=== PATIENT | female | born 1975 | race Two or more races ===

== ENCOUNTER 2022-06-23 19:53 | Emergency (ER) | payer OTHER, SELFPAY ==
--- NOTE | ~2022-06-23 | CT_ITS ---
EXAMINATION: CT ABDOMEN AND PELVIS WITHOUT CONTRAST CLINICAL INFORMATION: R flank pain etiology? . COMPARISON: No pertinent prior studies are available for comparison. TECHNIQUE: Multidetector volumetric imaging was performed from the superior aspect of the liver through the pubic symphysis without contrast per renal stone protocol. Sagittal and coronal reformatted images were obtained on the technologist workstation. This CT examination was performed using dose optimization techniques as appropriate, variously including the following: *Automated exposure control *Adjustment of mA and/or kV according to patient size (this includes techniques or standardized protocols for targeted exams where dose is matched to indication/reason for exam; i.e. extremities or head) *Use of iterative reconstruction technique DLP: 520 mGy-cm. FINDINGS: LUNG BASES: The visualized lung bases are unremarkable. Bilateral breast prostheses partially visualized LIVER, GALLBLADDER, BILIARY TREE: The non-contrast liver is normal in size, shape, and attenuation. No focal hepatic lesion or biliary ductal dilatation is present. The gallbladder surgically absent PANCREAS: Unremarkable. SPLEEN: Unremarkable. ADRENAL GLANDS: Unremarkable. KIDNEYS AND URETERS: The kidneys are normal in size, shape, and attenuation. No hydronephrosis, hydroureter, or calculi seen. No perinephric stranding. BLADDER: Unremarkable. GASTROINTESTINAL TRACT: Colon is very tortuous. The cecum is in the pelvis with a redundant portion of ascending colon that extends into the left upper quadrant with the hepatic flexure in the normal right upper quadrant and the splenic flexure in the left upper quadrant as well. No obstructive changes to the bowel ABDOMINAL WALL: No significant hernia is appreciated. There likely has been prior abdominoplasty. LYMPHOVASCULAR STRUCTURES: No lymphadenopathy. The aorta is unremarkable.. PELVIC VISCERA: Retroverted uterus with physiologic changes within normal limits for age OSSEUS STRUCTURES: Unremarkable. CT/CT abdomen pelvis wo IV con IMPRESSION: I do not appreciate any acute intra-abdominal process. Specifically no renal or ureteric calculi. No obstructive changes to the bowel. The colon is very tortuous but the cecum is in the pelvis and the ascending colon extends into the left upper quadrant with the hepatic flexure in the normal right upper quadrant and transverse colon crossing midline to the splenic flexure in the left upper quadrant as well.
[2022-06-23 20:28] VITALS: BP 132/91; PULSE 80; RESP 15; TEMP 36.6; O2SAT 100; BMI 28.4
--- OUTSIDE RECORDS SUMMARY | 2022-06-23 21:11 | XMS_ITS | Continuity of Care Document ---
:1975 Author Organization [facility] Address [address] [place] [id number]- Care Team Providers Name Role Phone Anshul ANGELO MD, Geoffrey Buckley Primary Care Physician Encounter [facility] Date(s): 12/29/19 - 12/29/[address] [address]- [facility] Discharge Disposition: A-D/C Walkout Attending Physician: Not on Staff, Attending MD Admitting Physician: Not on Staff, Admitting MD Referring Physician: Not on Staff, Referring MD Allergies, Adverse Reactions, Alerts Substance Reaction Severity Status penicillin itchy Active Results Radiology Reports Exam Date Time Procedure Performing Provider Status 12/29/19 3:40 PM Ankle Min 3 Views Left Guscott , Polina; Auth (V erified) Notes:(Ankle Min 3 Views Left) Reason For Exam: with Pain;TraumaRESULT: Ankle Min 3 Views Left Ankle Min 3 Views Left Refer to EMR; Reason: Trauma; with Pain; Clinical Question(s): Fracture; Special Instructions: This is a protocol film and radiologist should call any findings to the Charge Nurse; Hx of Present Illness: : syncope ankle injury; Other Objective Findings: t Pt was outside hanging something up , had syncopal episode. pt reports ileft ankel pain. pt reports startd new weight loss aid med no covid. COMPARISON: None. FINDINGS: No evidence of acute or healing fracture or bone lesion. Intact ankle mortise and talar dome. No arthritic changes. Normal soft tissues. IMPRESSION: Normal. WSN: [id number] Ordering Physician: Alyssa Du Dictated By: Jyothi Koenig MD Dictated Date/Time: 12/29/19 3:41 pm Reviewed By: Jyothi Koenig MD Signed By: Jyothi Koengi MD Signed Date/Time: 12/29/19 3:41 pm Transcribed By: KAYCE Transcribed Date/Time: 12/29/19 3:41 pm Vital Signs Most recent to oldest [Reference Range]: 1 Height 165 cm (12/29/19 3:48 PM) Oxygen Saturation [94-100 %] 100 % (12/29/19 3:48 PM) Pulse Rate [55-90 bpm] 78 bpm (12/29/19 3:48 PM) Blood Pressure [90-138/55-84 mm Hg] 111/75 mm Hg (12/29/19 3:48 PM) Respiratory Rate [16-30 br/min] 16 br/min (12/29/19 3:48 PM) Temperature [96.8-100.4 DegF] 98.0 DegF (12/29/19 3:48 PM) Mode of Delivery (Oxygen) Room air (12/29/19 3:48 PM) Blood pressure sites Arm, left (12/29/19 3:48 PM) Temperature Route Oral (12/29/19 3:48 PM) Weight Obtained Via UTO (12/29/19 3:48 PM) Dry Weight Obtained Via UTO (12/29/19 3:48 PM) Social History Social History Type Response Smoking Status Never smoker entered on: 06/30/16 Sex
--- OUTSIDE RECORDS SUMMARY | 2022-06-23 21:11 | XMS_ITS | Continuity of Care Document ---
:1975 Author Organization [facility] Address [address] [place] [id number]- Care Team Providers Name Role Phone Geoffrey Landers III, MD Primary Care Physician Encounter [facility] Date(s): 09/06/21 - 09/06/[address] [address]- Discharge Disposition: A-D/C Walkout Attending Physician: Not on Staff, Attending MD Admitting Physician: Not on Staff, Admitting MD Referring Physician: Not on Staff, Referring MD Allergies, Adverse Reactions, Alerts Substance Reaction Severity Status penicillin itchy Active Vital Signs Most recent to oldest 1 2 3 [Reference Range]: Oxygen Saturation [94-100 %] 100 % 94 % 97 % (09/06/21 4:00 PM) (09/06/21 1:11 PM) (09/06/21 1:0 4 PM) Pulse Rate [55-90 bpm] 107 bpm 99 bpm 104 bpm *H* *H* *H* (09/06/21 4:00 PM) (09/06/21 1:11 PM) (09/06/21 1:0 4 PM) Blood Pressure [90-138/55-84 mm 100/69 mm Hg 145/89 mm Hg Hg] (09/06/21 4:00 PM) *H* (09/06/21 1:11 PM) Respiratory Rate [16-30 br/min] 18 br/min 18 br/min (09/06/21 4:00 PM) (09/06/21 1:11 PM) Temperature [96.8-100.4 DegF] 99.0 DegF 101.3 DegF (09/06/21 4:00 PM) *H* (09/06/21 1:11 PM) Mode of Delivery (Oxygen) Room air Room air Room a ir (09/06/21 4:00 PM) (09/06/21 1:11 PM) (09/06/21 1:0 4 PM) Blood pressure sites Arm, right Arm, left (09/06/21 4:00 PM) (09/06/21 1:11 PM) Temperature Route Oral Oral (09/06/21 4:00 PM) (09/06/21 1:11 PM) Social History Social History Type Response Smoking Status Never smoker entered on: 06/30/16 Sex
[2022-06-23 21:19] VITALS: BP 121/79; PULSE 77; RESP 16; TEMP 36.5; O2SAT 100
--- NOTE | 2022-06-23 21:21 | PC.NURSE ---
Pt aox4. Breaths are even and unlabored. Abd soft and tender. Reports feeing nauseas. Denies vomiting and diarrhea. Skin warm pink and dry. Reports numbness and tingling on all extremities. +pedal and radial pulses present. Reports lower back pain, 10/10. Will continue to monitor.
--- NOTE | 2022-06-23 22:12 | ED.BACK ---
HPI - Back Pain/Injury General Chief Complaint: Back Pain/Injury Stated Complaint: lower back pain Time Seen by Provider: 06/23/22 22:12 Source: patient Mode of arrival: ambulatory Limitations: no limitations History of Present Illness HPI Narrative: Patient with no significant past medical history noted subacute onset of low back pain for last few days got worse in last 2 days denies any injury pain is mostly in lumbar area and flank area also complaining pain in abdomen diffuse as she aided with nausea and vomiting no dysuria no fever or chills no history of kidney stone no hematuria pain is mostly localized in the back area versus also now in abdominal Related Data Previous Rx's Medication Instructions Recorded cyclobenzaprine 10 mg tablet 10 mg PO Q8H #20 tabs 06/23/22 oxycodone-acetaminophen 5 mg-325 1 tab PO Q6H PRN pain #20 tabs 06/23/22 mg tablet (Percocet) Allergies Allergy/AdvReac Type Severity Reaction Status Date / Time Penicillins Allergy Mild ITCHING Unverified 02/13/20 15:47 ibuprofen [From Motrin] Allergy Unknown ITCHY Unverified 02/13/20 15:47 penicillin V Allergy Unknown hives and Verified 10/05/12 00:00 itching Review of Systems Review of Systems: Yes all other systems are reviewed and are negative PMFSH Social History Social History Advance Directives: No Physical Exam Vital Signs: Vital Signs: Last Vital Signs Temp 98.2 F 06/23/22 23:14 Pulse 63 06/23/22 23:14 Resp 16 06/23/22 23:14 BP 129/77 06/23/22 23:14 Pulse Ox 100 06/23/22 23:14 O2 Del Method 06/23/22 23:14 BMI result Body Mass Index 28.4 Appearance: Alert. Oriented X3. No acute distress. Eyes: PERRLA, No Nystagmus ENT: Pharynx normal. Oral Mucosa moist Neck: Normal inspection. Neck supple. CVS: Normal heart rate and rhythm. Pulses normal. Respiratory: No respiratory distress. Equal air entry bilateral, no wheezing/rales/rhonchi Abdomen: Soft , diffuse abdominal tenderness no rebound tenderness or guarding Bowel sounds are present, no mass palpable, right CVA tenderness Skin: Skin warm and dry. Normal skin color. Normal skin turgor. back: Right flank upper lumbar tenderness no rash Extremities: No lower extremity edema. No calf tenderness Neuro: Oriented X 3. No motor deficit. No sensory deficit.No cerebellar signs , cranial nerves II-XII intact Medications Administered Discontinued Medications Generic Name Dose Route Start Last Admin Trade Name Martinq PRN Reason Stop Dose Admin Sodium Chloride 1,000 mls @ 999 mls/hr 06/23/22 22:20 06/23/22 22:44 Ns IV 06/23/22 23:20 999 mls/hr .Q1H1M ONE Administration Morphine Sulfate 4 mg 06/23/22 22:20 06/23/22 22:45 Morphine Sulfate 4 Mg/Ml Cartridge IVPUSH 06/23/22 22:21 4 mg ONCE ONE Administration Protocol Ondansetron HCl 4 mg 06/23/22 22:20 06/23/22 22:45 Ondansetron Hcl 4 Mg/2 Ml Vial IVPUSH 06/23/22 22:21 4 mg ONCE ONE Administration Medical Decision Making Medical Decision Making [facility] Narrative: Patient with atraumatic low back pain CT scan negative for any acute abdominal and spinal pathology no signs of spinal cord impingement. Discharge patient home on pain medication muscle relaxant Lab Data [facility] Lab Attestation statement: I reviewed the patient's lab results. 06/23/22 22:27 06/23/22 22:27 Labs: Lab Results 06/23/22 06/23/22 06/23/22 Range/Units 22:27 22:27 22:27 WBC 7.5 (4.8-10.8) X10*3/uL RBC 4.13 L (4.20-5.50) X10*6/uL Hgb 12.3 (12.0-16.0) g/dl Hct 37.1 (37.0-47.0) % MCV 89.8 (80.0-98.0) fL MCH 29.8 (27.0-33.0) pg MCHC 33.2 (31.0-35.0) g/dl RDW 12.7 (11.0-16.0) % Plt Count 320 (160-400) X10*3/uL MPV 10.2 (9.4-12.3) fL Immature Gran % (Auto) 0.3 (0.0-0.4) % Neut % (Auto) 67.4 (45-73) % Lymph % (Auto) 22.3 (20-40) % [place] % (Auto) 5.2 (2-11) % Eos % (Auto) 4.4 H (0-4) % Baso % (Auto) 0.4 (0-2) % Lymph # (Auto) 1.7 (1.2-4.9) X10*3/uL [place] # (Auto) 0.4 (0.1-1.2) X10*3/uL Eos # (Auto) 0.3 (0.0-0.4) X10*3/uL Baso # (Auto) 0.0 (0.0-0.2) X10*3/uL Abs Immat Gran (auto) 0.02 (0.00-0.03) X10*3/uL Absolute Neuts (auto) 5.0 (2.0-8.3) x10*3/uL Absolute Nucleated RBC 0.000 (0.0-0.012) X10*3/uL Nucleated RBC % (auto) 0.0 (0.0-0.2) /100WBC Sodium 141 (135-145) mmol/L Potassium 3.8 (3.3-5.1) mmol/L Chloride 105 (96-108) mmol/L Carbon Dioxide 28 (22-29) mmol/L Anion Gap 12 (12-20) BUN 17 H (9-16) mg/dL Creatinine 0.82 (0.5-1.4) mg/dL Estim Creat Clear Calc 87.3 Estimated GFR > 60 Random Glucose 91 (60-115) mg/dL Calcium 9.7 (8.4-10.2) mg/dL Total Bilirubin 0.2 (0.0-1.0) mg/dL AST 16 (5-31) U/L ALT 16 (0-31) U/L Alkaline Phosphatase 93 (39-117) U/L Total Protein 7.0 (6.5-8.0) g/dL Albumin 4.2 (3.5-5.0) g/dL Urine Color Yellow Urine Appearance Clear Urine pH 7.0 (5.0-9.0) Ur Specific [place] >= 1.030 H (1.005-1.025) Urine Protein Trace (Neg-Trace) mg/dL Urine Glucose (UA) Negative (Negative) mg/dL Urine Ketones Trace (Negative) mg/dL Urine Blood Negative (Negative) Urine Nitrite Negative (Negative) Ur Leukocyte Esterase Negative (Negative) Discharge Plan Discharge Clinical Impression: Strain of lumbar region Patient Disposition: Home, Self-Care Instructions: Acute Low Back Pain (ED) Additional Instructions: Apply ice pack Take pain medication and muscle relaxants as prescribed Follow with PCP if not better Prescriptions: New cyclobenzaprine 10 mg tablet 10 mg PO Q8H Qty: 20 0RF oxycodone-acetaminophen [Percocet] 5-325 mg tablet 1 tab PO Q6H PRN (Reason: pain) Qty: 20 0RF Rx Instructions: Partial Fill upon patient request. Interventions: ED Discharge Assessment Last Done: 06/23/22 23:42 Discharge Date/Time: 06/23/22 23:43
[2022-06-23 22:32] LABS: MANUAL DIFF FLAG NO
[2022-06-23 22:34] LABS: Appearance Urine Clear; Basophils Percent Auto 0.4 % (0-2); Color Urine Yellow; Eosinophils Absolute Auto 0.3 X10*3/uL (0.0-0.4); Eosinophils Percent Auto 4.4 % (0-4); Glucose Urine UA Negative (Negative); Hematocrit 37.1 % (37.0-47.0); Hemoglobin 12.3 g/dl (12.0-16.0); Imm Gran Abs Auto 0.02 X10*3/uL (0.00-0.03); Imm Gran Pct Auto 0.3 % (0.0-0.4); Leukocyte Esterase Urine Negative (Negative); Lymphocytes Absolute Auto 1.7 X10*3/uL (1.2-4.9); Lymphocytes Percent Auto 22.3 % (20-40); Mean Corpuscular HGB Conc 33.2 g/dl (31.0-35.0); Mean Corpuscular Hemoglobin 29.8 pg (27.0-33.0); Mean Corpuscular Volume 89.8 fL (80.0-98.0); Mean Platelet Volume 10.2 fL (9.4-12.3); Monocytes Absolute Auto 0.4 X10*3/uL (0.1-1.2); Monocytes Percent Auto 5.2 % (2-11); Neutrophils Percent Auto 67.4 % (45-73); Nitrite Urine Negative (Negative); Platelet Count 320 X10*3/uL (160-400); Red Blood Count 4.13 X10*6/uL (4.20-5.50); Red Cell Distribution Width 12.7 % (11.0-16.0); Specific Gravity - Urine >= 1.030 (1.005-1.025); Urine Blood Negative (Negative); Urine Ketones Trace mg/dL (Negative); Urine Protein Trace mg/dL (Neg-Trace); White Blood Count 7.5 X10*3/uL (4.8-10.8)
[2022-06-23] MEDS: 0.9 % Sodium Chloride 1,000 ML 999 ML IV (22:44)
[2022-06-23] MEDS: Morphine Sulfate 4 MG/ML CARTRIDGE IVPUSH (22:45)
[2022-06-23] MEDS: ondansetron HCL 4 MG/2 ML VIAL IVPUSH (22:45)
[2022-06-23 22:51] LABS: Alanine Aminotransferase 16 U/L (0-31); Albumin Level 4.2 g/dL (3.5-5.0); Alkaline Phosphatase 93 U/L (39-117); Anion Gap 12 (12-20); Aspartate Amino Transferase 16 U/L (5-31); Bilirubin Total 0.2 mg/dL (0.0-1.0); Blood Urea Nitrogen 17 mg/dL (9-16); Calcium 9.7 mg/dL (8.4-10.2); Carbon Dioxide 28 mmol/L (22-29); Chloride 105 mmol/L (96-108); Creatinine Clr Calc Pharmacy 87.3; Estimated Glomerular Filt Rate > 60; Glucose Random 91 mg/dL (60-115); Potassium 3.8 mmol/L (3.3-5.1); Sodium 141 mmol/L (135-145)
[2022-06-23 23:14] VITALS: BP 129/77; PULSE 63; RESP 16; TEMP 36.8; O2SAT 100
--- NOTE | 2022-06-23 23:41 | PC.NURSE ---
Pt aox4 in no apparent distress. Reports no pain, 0/10. IV line removed with no complications. Pt tolerated well. Discharge instructions reviewed with pt. Pt verbalizes understanding. Pt ambulatory with steady gait.
--- NOTE | 2022-06-24 04:00 | ED.GENADULT ---
HPI - General Adult General Chief complaint: Back Pain/Injury Stated complaint: lower back pain Time Seen by Provider: 06/23/22 22:12 Source: patient Mode of arrival: ambulatory Limitations: no limitations History of Present Illness HPI narrative: Patient complaining of lower back pain for last 1 week no known injury pain is getting worse no radiation of the pain no tingling leg able to ambulate no abdominal pain no urinary complaint Related Data Previous Rx's Medication Instructions Recorded cyclobenzaprine 10 mg tablet 10 mg PO Q8H #20 tabs 06/23/22 oxycodone-acetaminophen 5 mg-325 1 tab PO Q6H PRN pain #20 tabs 06/23/22 mg tablet (Percocet) Allergies Allergy/AdvReac Type Severity Reaction Status Date / Time Penicillins Allergy Mild ITCHING Unverified 02/13/20 15:47 ibuprofen [From Motrin] Allergy Unknown ITCHY Unverified 02/13/20 15:47 penicillin V Allergy Unknown hives and Verified 10/05/12 00:00 itching Review of Systems Review of Systems: Yes all other systems are reviewed and are negative [facility] Social History Social History Advance Directives: No Physical Exam ED Vital Signs: Vital Signs - 24 hr 06/23/22 20:28 06/23/22 21:19 06/23/22 23:14 Temperature 97.8 F 97.7 F 98.2 F Pulse Rate 80 77 63 Respiratory Rate 15 16 16 Blood Pressure 132/91 H 121/79 129/77 Pulse Oximetry 100 100 100 Oxygen Delivery Method Room Air Room Air Room Air BMI result Body Mass Index 28.4 Appearance: Alert. Oriented X3. No acute distress. Eyes: PERRLA, No Nystagmus ENT: Pharynx normal. Oral Mucosa moist Neck: Normal inspection. Neck supple. CVS: Normal heart rate and rhythm. Pulses normal. Respiratory: No respiratory distress. Equal air entry bilateral, no wheezing/rales/rhonchi Abdomen: Soft and nontender. Bowel sounds are present, no mass palpable, no CVA tenderness Skin: Skin warm and dry. Normal skin color. Normal skin turgor. Extremities: No lower extremity edema. No calf tenderness back: Diffuse tenderness the lower back no spinal tenderness good range of movement SLR negative bilaterally Neuro: Oriented X 3. No motor deficit. No sensory deficit.No cerebellar signs , cranial nerves II-XII intact Medications Administered Discontinued Medications Generic Name Dose Route Start Last Admin Trade Name Stephanie PRN Reason Stop Dose Admin Sodium Chloride 1,000 mls @ 999 mls/hr 06/23/22 22:20 06/23/22 22:44 Ns IV 06/23/22 23:20 999 mls/hr .Q1H1M ONE Administration Morphine Sulfate 4 mg 06/23/22 22:20 06/23/22 22:45 Morphine Sulfate 4 Mg/Ml Cartridge IVPUSH 06/23/22 22:21 4 mg ONCE ONE Administration Protocol Ondansetron HCl 4 mg 06/23/22 22:20 06/23/22 22:45 Ondansetron Hcl 4 Mg/2 Ml Vial IVPUSH 06/23/22 22:21 4 mg ONCE ONE Administration Medical Decision Making Medical Decision Making [facility] Narrative: Patient pain likely from musculoskeletal CT scan of the abdomen is negative for any acute pathology labs are stable Lab Data [facility] Lab Attestation statement: I reviewed the patient's lab results. 06/23/22 22:27 06/23/22 22:27 Labs: Lab Results 06/23/22 06/23/22 06/23/22 Range/Units 22:27 22:27 22:27 WBC 7.5 (4.8-10.8) X10*3/uL RBC 4.13 L (4.20-5.50) X10*6/uL Hgb 12.3 (12.0-16.0) g/dl Hct 37.1 (37.0-47.0) % MCV 89.8 (80.0-98.0) fL MCH 29.8 (27.0-33.0) pg MCHC 33.2 (31.0-35.0) g/dl RDW 12.7 (11.0-16.0) % Plt Count 320 (160-400) X10*3/uL MPV 10.2 (9.4-12.3) fL Immature Gran % (Auto) 0.3 (0.0-0.4) % Neut % (Auto) 67.4 (45-73) % Lymph % (Auto) 22.3 (20-40) % [place] % (Auto) 5.2 (2-11) % Eos % (Auto) 4.4 H (0-4) % Baso % (Auto) 0.4 (0-2) % Lymph # (Auto) 1.7 (1.2-4.9) X10*3/uL [place] # (Auto) 0.4 (0.1-1.2) X10*3/uL Eos # (Auto) 0.3 (0.0-0.4) X10*3/uL Baso # (Auto) 0.0 (0.0-0.2) X10*3/uL Abs Immat Gran (auto) 0.02 (0.00-0.03) X10*3/uL Absolute Neuts (auto) 5.0 (2.0-8.3) x10*3/uL Absolute Nucleated RBC 0.000 (0.0-0.012) X10*3/uL Nucleated RBC % (auto) 0.0 (0.0-0.2) /100WBC Sodium 141 (135-145) mmol/L Potassium 3.8 (3.3-5.1) mmol/L Chloride 105 (96-108) mmol/L Carbon Dioxide 28 (22-29) mmol/L Anion Gap 12 (12-20) BUN 17 H (9-16) mg/dL Creatinine 0.82 (0.5-1.4) mg/dL Estim Creat Clear Calc 87.3 Estimated GFR > 60 Random Glucose 91 (60-115) mg/dL Calcium 9.7 (8.4-10.2) mg/dL Total Bilirubin 0.2 (0.0-1.0) mg/dL AST 16 (5-31) U/L ALT 16 (0-31) U/L Alkaline Phosphatase 93 (39-117) U/L Total Protein 7.0 (6.5-8.0) g/dL Albumin 4.2 (3.5-5.0) g/dL Urine Color Yellow Urine Appearance Clear Urine pH 7.0 (5.0-9.0) Ur Specific [place] >= 1.030 H (1.005-1.025) Urine Protein Trace (Neg-Trace) mg/dL Urine Glucose (UA) Negative (Negative) mg/dL Urine Ketones Trace (Negative) mg/dL Urine Blood Negative (Negative) Urine Nitrite Negative (Negative) Ur Leukocyte Esterase Negative (Negative) Discharge Plan Discharge Clinical Impression: Strain of lumbar region Patient Disposition: Home, Self-Care Instructions: Acute Low Back Pain (ED) Additional Instructions: Apply ice pack Take pain medication and muscle relaxants as prescribed Follow with PCP if not better Prescriptions: New cyclobenzaprine 10 mg tablet 10 mg PO Q8H Qty: 20 0RF oxycodone-acetaminophen [Percocet] 5-325 mg tablet 1 tab PO Q6H PRN (Reason: pain) Qty: 20 0RF Rx Instructions: Partial Fill upon patient request. Interventions: ED Discharge Assessment Last Done: 06/23/22 23:42 Discharge Date/Time: 06/23/22 23:43
== END 2022-06-23 23:43 | disposition home or self-care (01) ==
PROVIDERS: Emergency Provider Internal Medicine; PCP Internal Medicine
DX: M54.50 Low back pain, unspecified (principal); Z79.899 Other long term (current) drug therapy
CPT/HCPCS: 36415; 74176; 80053; 81003; 85025; 96374; 96375; 99284; J2270; J2405

== ENCOUNTER 2022-06-29 18:57 | Emergency (ER) | payer OTHER, SELFPAY ==
--- NOTE | ~2022-06-29 | XR_ITS ---
EXAMINATION: X-RAY LEFT TIBIA/FIBULA X-RAY LEFT ANKLE X-RAY LEFT FOOT CLINICAL INFORMATION: Injury, pain. COMPARISON: No similar priors. TECHNIQUE: 2 views of the left tibia/fibula. 2 views of the left ankle. 2 views of the left foot. FINDINGS: Left tibia/fibula: No acute fractures or malalignment. Left ankle: No acute fractures or malalignment. Left foot: No acute fractures or malalignment. There is diffuse nonspecific soft tissue swelling along the imaged left lower extremity. No unexpected radiopaque foreign bodies. XR/XR tibia fibula LT 2V IMPRESSION: 1. No acute fractures or malalignment. 2. Nonspecific diffuse soft tissue swelling along the imaged left lower extremity, correlate clinically for cellulitis or edema.
--- NOTE | ~2022-06-29 | XR_ITS ---
EXAMINATION: X-RAY LEFT TIBIA/FIBULA X-RAY LEFT ANKLE X-RAY LEFT FOOT CLINICAL INFORMATION: Injury, pain. COMPARISON: No similar priors. TECHNIQUE: 2 views of the left tibia/fibula. 2 views of the left ankle. 2 views of the left foot. FINDINGS: Left tibia/fibula: No acute fractures or malalignment. Left ankle: No acute fractures or malalignment. Left foot: No acute fractures or malalignment. There is diffuse nonspecific soft tissue swelling along the imaged left lower extremity. No unexpected radiopaque foreign bodies. XR/XR ankle LT 2V IMPRESSION: 1. No acute fractures or malalignment. 2. Nonspecific diffuse soft tissue swelling along the imaged left lower extremity, correlate clinically for cellulitis or edema.
--- NOTE | ~2022-06-29 | XR_ITS ---
EXAMINATION: X-RAY LEFT TIBIA/FIBULA X-RAY LEFT ANKLE X-RAY LEFT FOOT CLINICAL INFORMATION: Injury, pain. COMPARISON: No similar priors. TECHNIQUE: 2 views of the left tibia/fibula. 2 views of the left ankle. 2 views of the left foot. FINDINGS: Left tibia/fibula: No acute fractures or malalignment. Left ankle: No acute fractures or malalignment. Left foot: No acute fractures or malalignment. There is diffuse nonspecific soft tissue swelling along the imaged left lower extremity. No unexpected radiopaque foreign bodies. XR/XR foot LT 2V IMPRESSION: 1. No acute fractures or malalignment. 2. Nonspecific diffuse soft tissue swelling along the imaged left lower extremity, correlate clinically for cellulitis or edema.
[2022-06-29 19:26] VITALS: BP 122/80; PULSE 89; RESP 18; TEMP 36.5; O2SAT 99; BMI 26.4
--- NOTE | 2022-06-29 19:28 | ED_ITS ---
HPI - Extremity Injury (Lower) General Chief Complaint: Extremity Injury, Lower <Carissa Best NP - Last Filed: 06/29/22 19:29> Stated Complaint: left foot pain slipped down steps <Carissa Best NP - Last Filed: 06/29/22 19:29> Time Seen by Provider: 06/29/22 23:49 <Carissa Best NP - Last Filed: 06/29/22 19:29> Source: patient <Arcadio Hooks MD - Last Filed: 06/30/22 00:35> Mode of arrival: ambulatory <Arcadio Hooks MD - Last Filed: 06/30/22 00:35> Limitations: no limitations <Arcadio Hooks MD - Last Filed: 06/30/22 00:35> History of Present Illness HPI Narrative: 47-year-old female who presents emergency department for evaluation of injury to her left leg after fall. The patient states she was at a store walking down stairs, she states she was on the 3rd step in looked behind her and then realized that she was not at the bottom of the stairs and she had to jump in order to stop from falling. She states she landed on her legs but then twisted both her left and right ankle causing her to fall on her left side. She denied any head injury. States that she developed immediate pain in her left foot, ankle and leg up to her knee. She states that she was able to walk but the pain was severe whenever she tried to bear weight. She states since the injury she has had swelling in her foot, ankle and calf. The injury occurred around 18:20 hours . The patient had a recent ED visit for lower back pain and was prescribe cyclobenzaprine and Percocet, states that the oxycodone made hurt itchy. <Arcadio Hooks MD - Last Filed: 06/30/22 00:35> Related Data Home Medications: Previous Rx's Medication Instructions Recorded cyclobenzaprine 10 mg tablet 10 mg PO Q8H #20 tabs 06/23/22 morphine 15 mg immediate release 15 mg PO Q4-6H PRN pain #14 tabs 06/30/22 tablet <Carissa Best NP - Last Filed: 06/29/22 19:29> Allergies/Adverse Reactions: Allergies Allergy/AdvReac Type Severity Reaction Status Date / Time Penicillins Allergy Mild ITCHING Unverified 02/13/20 15:47 ibuprofen [From Motrin] Allergy Unknown ITCHY Unverified 02/13/20 15:47 penicillin V Allergy Unknown hives and Verified 10/05/12 00:00 itching <Carissa Best NP - Last Filed: 06/29/22 19:29> Review of Systems Review of Systems: Yes all other systems are reviewed and are negative <Arcadio Hooks MD - Last Filed: 06/30/22 00:35> [facility] Past Medical History [facility] Narrative: Past medical history: Hypothyroidism, chronic pain secondary to right elbow fracture, anxiety, recent ED visit 06/24/2021 for lower back pain. Past surgical history: Multiple right elbow surgeries for fracture. Social history: She denies tobacco use. She denies alcohol use. She states she uses medical marijuana for her anxiety and her chronic pain in her right elbow <Arcadio Hooks MD - Last Filed: 06/30/22 00:35> Social History Social History: Social History Advance Directives: No <Carissa Best NP - Last Filed: 06/29/22 19:29> Physical Exam Vital Signs: Vital Signs: Last Vital Signs Temp 97.7 F 06/29/22 19:26 Pulse 89 06/29/22 19:26 Resp 18 06/29/22 19:26 BP 122/80 06/29/22 19:26 Pulse Ox 99 06/29/22 19:26 O2 Del Method 06/29/22 19:26 BMI result Body Mass Index 26.4 <Carissa Best NP - Last Filed: 06/29/22 19:29> Vital Signs: Last Vital Signs Temp 97.7 F 06/29/22 19:26 Pulse 89 06/29/22 19:26 Resp 18 06/29/22 19:26 BP 122/80 06/29/22 19:26 Pulse Ox 99 06/29/22 19:26 O2 Del Method 06/29/22 19:26 BMI result Body Mass Index 26.4 Vital signs were normal <Arcadio Hooks MD - Last Filed: 06/30/22 00:35> General: Awake, alert, female patient, no distress Head: Normal cephalic atraumatic Neck: No CVA tenderness Extremities: The patient does have soft tissue swelling noted over her left lateral malleolus and over her left calf, patient does not have any significant soft tissue swelling of the foot. Pain patient has severe tenderness with palpation of her foot, ankle bilaterally, calf, tib-fib area diffusely. There is no ecchymosis or skin lesions noted. Extremities neurovascular intact <Arcadio Hooks MD - Last Filed: 06/30/22 00:35> Course Course Course Narrative: This is rapid medical exam. Defer additional HPI, ROS, PE to primary provider. 47 yo female with hypothyroidism here with complaints of LLE pain after a trip and fall down 5 steps. No head strike or LOC. Will get x-rays. VSS <Carissa Best NP - Last Filed: 06/29/22 19:29> Medications Administered Discontinued Medications Generic Name Dose Route Start Last Admin Trade Name Freq PRN Reason Stop Dose Admin Acetaminophen 975 mg 06/30/22 00:05 06/30/22 00:10 Acetaminophen 325 Mg Tablet PO 06/30/22 00:06 975 mg ONCE STA Administration <Carissa Best NP - Last Filed: 06/29/22 19:29> Medications Administered Discontinued Medications Generic Name Dose Route Start Last Admin Trade Name Freq PRN Reason Stop Dose Admin Acetaminophen 975 mg 06/30/22 00:05 06/30/22 00:10 Acetaminophen 325 Mg Tablet PO 06/30/22 00:06 975 mg ONCE STA Administration <Arcadio Hooks MD - Last Filed: 06/30/22 00:35> Medical Decision Making Medical Decision Making MDM Narrative: 47-year-old female who presents emergency department for evaluation of injuries to her left leg from a fall going down stairs. The injury occurred earlier today at around 18:20 hours. The patient's exam did reveal soft tissue swelling over the left ankle and left calf area with no ecchymosis, had significant tenderness palpation of the entirety of her leg from the knee down. X-rays were obtained of the left tib-fib, ankle and foot. My interpretation of these at no acute fracture this was in agreement with the radiologist interpretation as well. The patient was given Tylenol 975 mg orally. She is driving so she was not given any narcotic pain medications. She was given crut ches. She states she can take Aleve and Tylenol. She was advised to take Aleve and Tylenol and for pain not relieved by these 2 medications she was prescribed morphine. Patient did receive a recent prescription for oxycodone which caused itchiness. I told her if the morphine makes her itchy she can take Benadryl 25 mg with each dose of morphine. She was given printed and verbal instructions. She was discharged home. <Arcadio Hooks MD - Last Filed: 06/30/22 00:35> Differential Diagnosis Differential diagnosis includes was not limited to tib fib fracture, ankle fracture, foot fracture, contusion to lower extremity, sprain, strain of the lower extremity <Arcadio Hooks MD - Last Filed: 06/30/22 00:35> Independent Interpretation I performed an independent interpretation of an: Plain X-Ray (Left tib-fib, left ankle, left foot) <Arcadio Hooks MD - Last Filed: 06/30/22 00:35> Interpretation: My independent interpretation of these x-rays is as follows: No acute fracture seen <Arcadio Hooks MD - Last Filed: 06/30/22 00:35> Radiology Impression Discussion of test interpretation with radiology: I have reviewed the radiologist's reading. (I agree with the radiologist's interpretation) <Arcadio Hooks MD - Last Filed: 06/30/22 00:35> Radiologist Impression: EXAMINATION: X-RAY LEFT TIBIA/FIBULA X-RAY LEFT ANKLE X-RAY LEFT FOOT CLINICAL INFORMATION: Injury, pain.? COMPARISON: No similar priors.? TECHNIQUE: 2 views of the left tibia/fibula. 2 views of the left ankle. 2 views of the left foot.? FINDINGS: Left tibia/fibula: No acute fractures or malalignment. Left ankle: No acute fractures or malalignment. Left foot: No acute fractures or malalignment. There is diffuse nonspecific soft tissue swelling along the imaged left lower extremity. No unexpected radiopaque foreign bodies.? XR/XR ankle LT 2V IMPRESSION: 1.? No acute fractures or malalignment. 2.? Nonspecific diffuse soft tissue swelling along the imaged left lower extremity, correlate clinically for cellulitis or edema. ? Dictated By: Kamala Frederick Signed By:<Electronically signed by Kamala? Yoly in [place]>06/29/22 2019 <Arcadio Hooks MD - Last Filed: 06/30/22 00:35> Prescription Management I considered prescription management with: Pain Medication <Arcadio Hooks MD - Last Filed: 06/30/22 00:35> Discharge Plan Discharge Clinical Impression: Ankle sprain and strain Contusion of left knee and lower leg Qualifiers: Encounter type: initial encounter Qualified Code(s): S80.02XA - Contusion of left knee, initial encounter Fall Qualifiers: Encounter type: initial encounter Qualified Code(s): W19.XXXA - Unspecified fall, initial encounter <Carissa Best NP - Last Filed: 06/29/22 19:29> Patient Disposition: Home, Self-Care <Carissa Best NP - Last Filed: 06/29/22 19:29> Additional Instructions: The x-rays of your leg, ankle and foot were normal with no broken bones seen by me or the radiologist. Your pain is consistent with sprain/strain/contusions to your lower leg. Follow the RICE instructed Use the crutches for 1-2 weeks to keep weight off your left leg. Take Aleve (naproxen 220 mg pills, 1 pill every 12 hours as needed for pain. Take extra-strength Tylenol (acetaminophen) 500 mg pills, 2 pills every 4-6 hours as needed for pain. For pain not relieved by ibuprofen or Tylenol take morphine 15 mg pills, 1 pill every 4-6 hours as needed for pain. Do not drive or work while taking this medication since they can cause sleepiness. Morphine is a narcotic medication that can be addicting. If you are concerned about addiction you can ask the pharmacist for less pills or do not get this prescription filled. If morphine makes you itchy take Benadryl 25 mg with each dose of morphine. You were prescribed oxycodone previously in this major itchy. Follow-up with your doctor in 2 days. Please return to the emergency department if your symptoms get worse or if you develop any symptoms that are concerning to you. <Carissa Best NP - Last Filed: 06/29/22 19:29> Prescriptions: New morphine 15 mg tablet 15 mg PO Q4-6H PRN (Reason: pain) Qty: 14 0RF Rx Instructions: Patient may request partial fill; Partial Fill upon patient request. Discontinued oxycodone-acetaminophen [Percocet] 5-325 mg tablet 1 tab PO Q6H PRN (Reason: pain) Qty: 20 0RF Rx Instructions: Partial Fill upon patient request. No Action cyclobenzaprine 10 mg tablet 10 mg PO Q8H Qty: 20 0RF <Carissa Best NP - Last Filed: 06/29/22 19:29>
[2022-06-30] MEDS: Acetaminophen 325 MG TABLET 975 MG PO (00:10)
== END 2022-06-30 00:32 | disposition home or self-care (01) ==
PROVIDERS: Emergency Provider Emergency Medicine Emergency Medical Services; PCP Internal Medicine
DX: S80.02XA Contusion of left knee, initial encounter (principal); S89.92XA Unspecified injury of left lower leg, initial encounter; M79.605 Pain in left leg; M54.50 Low back pain, unspecified; M25.572 Pain in left ankle and joints of left foot; W10.9XXA Fall (on) (from) unspecified stairs and steps, initial encounter; Y93.9 Activity, unspecified; Y92.512 Supermarket, store or market as the place of occurrence of the external cause; Y99.9 Unspecified external cause status; Z79.899 Other long term (current) drug therapy
CPT/HCPCS: 73590; 73600; 73620; 99283

== ENCOUNTER 2022-10-29 09:12 | Emergency (ER) | payer OTHER, SELFPAY ==
[2022-10-29 09:16] VITALS: BP 132/66; PULSE 73; RESP 16; TEMP 36.6; O2SAT 99; BMI 29.6
--- NOTE | 2022-10-29 09:46 | ED.GENADULT ---
HPI - General Adult General Chief complaint: General Medical Stated complaint: pain from L buttcheek down to leg, numbness Time Seen by Provider: 10/29/22 09:40 Source: patient Mode of arrival: ambulatory Limitations: no limitations History of Present Illness HPI narrative: 47 year old female with no significant past medical history who presents to the ED today with a complaint of left lower back pain radiating down the lateral left leg and into her left foot x1 day. She states that she's had constant severe pain that originated in her left lower back. It is now traveling down the left buttock and down the left lateral leg. She states her left leg is tender to palpation. She reports associated numbness of the left lower extremity. She took an oxycodone for the pain yesterday without relieve and 3 500mg tylenol at 3 am today without relief. Patient is able to ambulate and drove herself to the ED today. Denies any trauma or injury to the leg. Denies bowel or bladder incontinence, numbness or parenthesis to the groin, dysuria, diarrhea, constipation, chest pain, or shortness of breath. MD complaint: left lower extremity pain Onset (ago): day(s) (1) Location: back Radiation: extremity (left) Severity: severe Quality: sharp Pain Consistency: constant Relieving factors: none Exacerbating factors: movement Associated symptoms: denies other symptoms Related Data Previous Rx's Medication Instructions Recorded cyclobenzaprine 10 mg tablet 10 mg PO Q8H #20 tabs 06/23/22 morphine 15 mg immediate release 15 mg PO Q4-6H PRN pain #14 tabs 06/30/22 tablet cyclobenzaprine 10 mg tablet 10 mg PO TID PRN muscle spasm #14 10/29/22 tabs oxycodone 5 mg tablet 5 mg PO Q8H PRN severe pain (scale 10/29/22 score 7-10) #6 tabs prednisone 50 mg tablet 50 mg PO DAILY #5 tabs 10/29/22 Allergies Allergy/AdvReac Type Severity Reaction Status Date / Time Penicillins Allergy Mild ITCHING Verified 10/29/22 09:16 ibuprofen [From Motrin] Allergy Unknown ITCHY Verified 10/29/22 09:16 penicillin V Allergy Unknown hives and Verified 10/29/22 09:16 itching Review of Systems Review of Systems: Yes all other systems are reviewed and are negative [facility] Social History Social History Smoked in Last 30 Days: No Advance Directives: No Physical Exam ED Vital Signs: Vital Signs - 24 hr 10/29/22 09:16 10/29/22 11:03 Temperature 97.9 F 98.1 F Pulse Rate 73 73 Respiratory Rate 16 18 Blood Pressure 132/66 141/86 H Pulse Oximetry 99 100 Oxygen Delivery Method Room Air Room Air BMI result Body Mass Index 29.6 Vital signs stable Appearance: Alert. Oriented X3. No acute distress. HEENT: normal inspection CVS: Normal heart rate and rhythm. Pulses normal. Respiratory: No respiratory distress. Skin: Skin warm and dry. Normal skin color. Normal skin turgor. No rashes. Extremities: LLE tender to palpation laterally. Normal sensation. Back: No midline or paraspinal tenderness. +SI joint tenderness. Neuro: Oriented X 3. No motor deficit. No sensory deficit. steady gait Medications Administered Discontinued Medications Generic Name Dose Route Start Last Admin Trade Name Martinq PRN Reason Stop Dose Admin Ketorolac Tromethamine 30 mg 10/29/22 10:07 10/29/22 10:16 Ketorolac Tromethamine 30 Mg/Ml Vial IM 10/29/22 10:08 30 mg ONCE ONE Administration Prednisone 60 mg 10/29/22 10:07 10/29/22 10:15 Prednisone 20 Mg Tablet PO 10/29/22 10:08 60 mg ONCE ONE Administration Medical Decision Making Medical Decision Making MDM Narrative: 47 year old female with no significant past medical history who presents to the ED today with a complaint of left lower back pain radiating down the lateral left leg and into her left foot x1 day. She states that she's had constant severe pain that originated in her left lower back. No trauma or injury. VSS. Physical exam unremarkable except for tender left lower extremity to palpation. Patient given ketorolac and prednisone shot in ED for pain With improvement in her symptoms. No red flag symptoms of low back pain. Will treat for sciatic up with prednisone given NSAID allergy. Will give short course of Flexeril and oxycodone for pain control. She was encouraged follow up with her primary care doctor. Low back exercises provided. Stable for discharge. Differential Diagnosis Differential Diagnoses: The differential diagnosis associated with the presentation includes sciatica, Lumbar radiculopathy,lumbar strain or sprain, unlikely cauda equina External Record Review External record reviewed: Outpatient record and Prior outpatient labs Tests considered The following testing was considered but not selected: considered imaging of the lumbar spine however there was no trauma and she had no red flag symptoms. Prescription Management I considered prescription management with: Pain Medication Critical Care Time Critical Care Time Critical Care Time: No Discharge Plan Discharge Clinical Impression: Sciatica Patient Disposition: Home, Self-Care Instructions: Sciatica (ED), Lower Back Exercises (ED) Additional Instructions: Your pain is most likely due to sciatica, inflammation of the sciatic nerve. No bending, lifting or twisting. Use ice several times per day for 20 minutes at a time for the next 48 hours and then change to heat. Take medications as prescribed to help with pain and discomfort. Do not drive after taking oxycodone of flexeril. Follow up with your Primary Care Doctor this week. If your pain worsens, if you develop new numbness, tingling, weakness, loss of function or incontinence call 911 or come back to the ER right away for evaluation. Prescriptions: New prednisone 50 mg tablet 50 mg PO DAILY Qty: 5 0RF cyclobenzaprine 10 mg tablet 10 mg PO TID PRN (Reason: muscle spasm) Qty: 14 0RF oxycodone 5 mg tablet 5 mg PO Q8H PRN (Reason: severe pain (scale score 7-10)) Qty: 6 0RF Rx Instructions: Partial Fill upon patient request. No Action morphine 15 mg tablet 15 mg PO Q4-6H PRN (Reason: pain) Qty: 14 0RF Rx Instructions: Patient may request partial fill; Partial Fill upon patient request. cyclobenzaprine 10 mg tablet 10 mg PO Q8H Qty: 20 0RF Referrals: Geoffrey Landers III, MD [Primary Care Provider] - Interventions: ED Discharge Assessment Last Done: 10/29/22 11:16 Discharge Date/Time: 10/29/22 11:17
[2022-10-29] MEDS: predniSONE 20 MG TABLET 60 MG PO (10:15)
[2022-10-29] MEDS: Ketorolac Tromethamine 30 MG/ML VIAL IM (10:16)
[2022-10-29 11:03] VITALS: BP 141/86; PULSE 73; RESP 18; TEMP 36.7; O2SAT 100
== END 2022-10-29 11:17 | disposition home or self-care (01) ==
PROVIDERS: Emergency Provider Emergency Medicine; PCP Internal Medicine
DX: M54.41 Lumbago with sciatica, right side (principal); M54.42 Lumbago with sciatica, left side; Z79.899 Other long term (current) drug therapy
CPT/HCPCS: 96372; 99284; J1885

== ENCOUNTER 2022-11-05 22:35 | Emergency (ER) | payer OTHER, SELFPAY ==
--- NOTE | ~2022-11-05 | XR_ITS ---
EXAMINATION: XR LUMBOSACRAL SPINE CLINICAL INFORMATION: Painful COMPARISON: None available. TECHNIQUE: Three views of the lumbosacral spine. FINDINGS: No fracture or subluxation. Vertebral body height and alignment maintained. Disc space narrowing of L5-S1. Small endplate osteophytes present. The sacroiliac joints are symmetric. The sacrum is intact. Normal bowel gas pattern. XR/XR lumbar spine 2-3V IMPRESSION: Mild degenerative changes of the lower lumbar spine.
[2022-11-05 22:53] VITALS: BP 134/86; PULSE 75; RESP 18; TEMP 36.9; O2SAT 96; BMI 29.0
== END 2022-11-06 02:28 | disposition left against medical advice (07) ==
PROVIDERS: Emergency Provider Emergency Medicine; PCP Internal Medicine
DX: M54.42 Lumbago with sciatica, left side (principal)
CPT/HCPCS: 72100; 99281; 99283

== ENCOUNTER 2022-12-26 05:42 | Emergency (ER) | payer OTHER, SELFPAY ==
--- NOTE | ~2022-12-26 | XR_ITS ---
EXAMINATION: XR FOOT, RIGHT CLINICAL INFORMATION: Pain COMPARISON: None available. TECHNIQUE: AP, lateral, and oblique views of the right foot. FINDINGS: No fracture or dislocation. Alignment is anatomic. Joint spaces are maintained. The soft tissues are unremarkable. XR/XR foot RT min 3V IMPRESSION: Normal right foot.
[2022-12-26 05:57] VITALS: BP 140/69; PULSE 76; RESP 16; TEMP 36.6; O2SAT 98; BMI 30.8
--- NOTE | 2022-12-26 06:56 | ED.LOWEXIN ---
HPI - Extremity Injury (Lower) General Chief Complaint: Extremity Injury, Lower Stated Complaint: right foot inj/pain Time Seen by Provider: 12/26/22 06:34 Source: patient Mode of arrival: ambulatory Limitations: no limitations History of Present Illness HPI Narrative: 47 yo female with history of sciatica who is presenting with nontraumatic right foot pain for the last 3 days, progressively worsening. She does not remember kicking anything or dropping anything on her foot. It has been swollen from the 2nd and 3rd toes down into the foot. No bruising. She has been walking with a limp due to sciatica on the left side; she is due for surgery soon. complaint: foot injury Onset (ago): day(s) (3) Injury: Right: foot Type of Injury: unknown Place: home Severity: severe Severity scale (1-10): 8 Relieving factors: immobilization and rest Exacerbating factors: weight bearing, movement and palpation Associated symptoms: swelling and able to partially bear weight Other symptoms: none Related Data Previous Rx's Medication Instructions Recorded cyclobenzaprine 10 mg tablet 10 mg PO Q8H #20 tabs 06/23/22 morphine 15 mg immediate release 15 mg PO Q4-6H PRN pain #14 tabs 06/30/22 tablet cyclobenzaprine 10 mg tablet 10 mg PO TID PRN muscle spasm #14 10/29/22 tabs hydrocodone 5 mg-acetaminophen 325 1 tab PO Q8H PRN severe pain 10/29/22 mg tablet (scale score 7-10) #6 tabs prednisone 50 mg tablet 50 mg PO DAILY #5 tabs 10/29/22 Allergies Allergy/AdvReac Type Severity Reaction Status Date / Time Penicillins Allergy Mild ITCHING Verified 10/29/22 09:16 ibuprofen [From Motrin] Allergy Unknown ITCHY Verified 10/29/22 09:16 penicillin V Allergy Unknown hives and Verified 10/29/22 09:16 itching Review of Systems Review of Systems: Yes all other systems are reviewed and are negative [facility] Social History Social History Alcohol intake: never Smoked in Last 30 Days: No Use of substances other than those prescribed or required for medical reasons: Yes Substance Use Type: Marijuana Substance Use Frequency: Daily Advance Directives: No Advance Directives Information Provided: No Patient : No Physical Exam Vital Signs: Vital Signs: Last Vital Signs Temp 97.8 F 12/26/22 05:57 Pulse 76 12/26/22 05:57 Resp 16 12/26/22 05:57 BP 140/69 H 12/26/22 05:57 Pulse Ox 98 12/26/22 05:57 O2 Del Method Room Air 12/26/22 05:57 BMI result Body Mass Index 30.8 Appearance: Alert. Oriented X3. No acute distress. HEENT: normal inspection CVS: Normal heart rate and rhythm. Pulses normal. Respiratory: No respiratory distress. Skin: Skin warm and dry. Normal skin color. Normal skin turgor. No rashes. Extremities: right foot with mild swelling of the distal foot just proximal to the 2nd and 3rd digits with associated tenderness. no ecchymosis, erythma. pain with movement of the toes. NV intact. Neuro: Oriented X 3. No motor deficit. No sensory deficit. Antalgic gait Medications Administered Discontinued Medications Generic Name Dose Route Start Last Admin Trade Name Freq PRN Reason Stop Dose Admin Acetaminophen 975 mg 12/26/22 06:48 12/26/22 07:03 Acetaminophen 325 Mg Tablet PO 12/26/22 06:49 975 mg ONCE ONE Administration Medical Decision Making Medical Decision Making MDM Narrative: 47 yo female presenting with nontraumatic right foot pain and swelling x3 days. tender on exam without ecchymosis or erythema. xray is normal will treat conservatively with RICE, crutches, LAST, pain control and have her f/u with PCP or ortho if pain persists. Differential Diagnosis Differential Diagnoses: The differential diagnosis associated with the presentation includes fractured foot, foot contusion, stress fracture, foot sprain, less likely early cellulitis Independent Interpretation I performed an independent interpretation of an: Plain X-Ray Interpretation: normal appearing foot, agree w/ radiologist Radiology Impression Discussion of test interpretation with radiology: I have reviewed the radiologist's reading. Radiologist Impression: ?XR/XR foot RT min 3V IMPRESSION: Normal right foot. External Record Review External record reviewed: Outpatient record Prescription Management I considered prescription management with: Pain Medication Chronic Conditions Patient?s care impacted by: Other (sciatica) Critical Care Time Critical Care Time Critical Care Time: No Discharge Plan Discharge Clinical Impression: Metatarsalgia of right foot Patient Disposition: Home, Self-Care Instructions: Metatarsalgia (DC) Additional Instructions: Your x-ray today was normal. Rest your foot and elevate it when possible. Recommend LAST wrap for support and compression. Use ice several times per day for the next 48 hours. You may bear weight as tolerated. If pain is too severe, use crutches until better. Take Motrin and/or Tylenol as needed for pain. Follow up with your doctor as needed. If you have ongoing foot pain, recommend following up with Orthopedics for further evaluation and treatment - name and number below. Prescriptions: No Action morphine 15 mg tablet 15 mg PO Q4-6H PRN (Reason: pain) Qty: 14 0RF Rx Instructions: Patient may request partial fill; Partial Fill upon patient request. cyclobenzaprine 10 mg tablet 10 mg PO Q8H Qty: 20 0RF prednisone 50 mg tablet 50 mg PO DAILY Qty: 5 0RF cyclobenzaprine 10 mg tablet 10 mg PO TID PRN (Reason: muscle spasm) Qty: 14 0RF hydrocodone-acetaminophen 5-325 mg tablet 1 tab PO Q8H PRN (Reason: severe pain (scale score 7-10)) Qty: 6 0RF Rx Instructions: Partial Fill upon patient request. Referrals: [facility] [place] [facility] [Provider Group] Stand Alone Forms: Work/School Release Discharge Date/Time: 12/26/22 07:34
[2022-12-26] MEDS: Acetaminophen 325 MG TABLET 975 MG PO (07:03)
== END 2022-12-26 07:34 | disposition home or self-care (01) ==
PROVIDERS: Emergency Provider Emergency Medicine; PCP Internal Medicine
DX: M77.41 Metatarsalgia, right foot (principal); M79.671 Pain in right foot; F12.90 Cannabis use, unspecified, uncomplicated
CPT/HCPCS: 73630; 99283; 99284